=== PATIENT | female | born 1970 | race Two or more races ===

== ENCOUNTER 2025-03-13 11:52 | Inpatient (IN) | payer BC ==
[~2025-03-13] VITALS: Ht 170.2 cm; Wt 97.2 kg
[2025-03-13 11:56] VITALS: O2SAT 96
[2025-03-13] MEDS: SODIUM CHLORIDE 0.9% (SEPSIS BOLUS) IV ONE (12:15)
[2025-03-13] MEDS: CEFTRIAXONE 1GM/50ML 50 ML IV ONE (12:34)
[2025-03-13 12:35] LABS: BASOPHILS % 0.7 % (0.0-2.0); EOSINOPHILS % 1.5 % (0.0-5.0); HEMATOCRIT. 43.7 % (36.0-48.0); HEMOGLOBIN. 14.5 g/dL (12.0-16.0); LYMPHOCYTES % 26.7 % (20.0-50.0); MEAN PLATELET VOLUME 7.9 fl (7.4-10.4); MONOCYTES % 6.8 % (2.0-8.0); NEUTROPHILS % 64.3 % (40.0-76.0); PLATELET 233 x1000/uL (130-400); RED BLOOD CELL COUNT 5.21 mill/uL (4.2-5.4); RED CELL DISTRIBUTION WIDTH 13.3 % (11.6-14.6)
[2025-03-13 12:49] LABS: CLARITY URINE CLEAR (CLEAR); COLOR URINE YELLOW (YELLOW); GLUCOSE URINE 1+ (NEGATIVE); KETONES URINE NEGATIVE (NEGATIVE); LEUKOCYTE ESTERASE URINE NEGATIVE (NEGATIVE); NITRITE URINE NEGATIVE (NEGATIVE); OCCULT BLOOD URINE NEGATIVE (NEGATIVE); PH URINE 7.0 (4.5-8.0); PROTEIN URINE NEGATIVE (NEGATIVE); SPECIFIC GRAVITY URINE 1.005 (1.005-1.030); UROBILINOGEN URINE 0.2 E.U./dL (0.2-1.0)
[2025-03-13 12:53] LABS: CREATININE 0.8 mg/dL (0.6-1.0)
[2025-03-13 12:54] LABS: ETHANOL BLOOD < 10 mg/dL (<10); PROTEIN TOTAL 7.9 g/dL (6.0-8.3); UREA NITROGEN BLOOD < 5 mg/dL (9-23)
[2025-03-13 12:55] LABS: ASPARTATE AMINOTRANSFERASE 65 IU/L (<34); BILIRUBIN DIRECT 0.1 mg/dL (<=3.0); TROPONIN I HIGH SENSITIVITY < 4 ng/L (3.0-34)
[2025-03-13 12:56] LABS: BILIRUBIN TOTAL 0.5 mg/dL (0.1-1.0)
[2025-03-13 13:02] LABS: SQUAMOUS EPITHELIAL CELL URINE 2+ /lpf (RARE/1+)
[2025-03-13 13:03] LABS: BACTERIA URINE 1+; RBC URINE 0-2 /hpf (0-2); WBC URINE 0-2 /hpf (0-2)
[2025-03-13] MEDS: AZITHROMYCIN 500MG/250ML 250 ML IV ONE (13:10)
[2025-03-13] MEDS: METOCLOPRAMIDE HCL 10MG/2ML VIAL IV ONE (13:10)
[2025-03-13] MEDS: DEXAMETHASONE 4MG TABLET PO ONE (13:10)
[2025-03-13] MEDS: ACETAMINOPHEN 325MG TABLET PO ONE (13:10)
[2025-03-13 13:39] LABS: T4 FREE 1.12 ng/dL (0.89-1.76)
[2025-03-13 14:34] LABS: INR 1.0
[2025-03-13 14:38] LABS: TROPONIN I HIGH SENSITIVITY 5 ng/L (3.0-34)
[2025-03-13] MEDS: AMLODIPINE 5MG TABLET PO ONE (14:55)
[2025-03-13 15:30] LABS: *AMPHETAMINES SCREEN URINE NEGATIVE (NEGATIVE); *BARBITURATES SCREEN URINE NEGATIVE (NEGATIVE); *BENZODIAZEPINES SCREEN URINE NEGATIVE (NEGATIVE); *COCAINE SCREEN URINE NEGATIVE (NEGATIVE); METHADONE URINE SCREEN NEGATIVE (NEGATIVE)
[2025-03-13 15:31] LABS: CANNABINOID URINE SCREEN NEGATIVE (NEGATIVE); ECSTASY MDMA SCREEN URINE NEGATIVE (NEGATIVE); OPIATES URINE SCREEN NEGATIVE (NEGATIVE); PHENCYCLIDINE URINE SCREEN NEGATIVE (NEGATIVE)
[2025-03-13] MEDS: LABETALOL 5MG/ML 4ML INJ IV NR (17:36)
[2025-03-13] MEDS ORDERED: ACETAMINOPHEN 325MG TABLET PO PRN ×2 (19:15)
[2025-03-13] MEDS ORDERED: DOCUSATE SODIUM 100MG CAPSULE PO PRN (19:15)
[2025-03-13] MEDS ORDERED: HYDRALAZINE 20MG/ML VIAL IV PRN (19:15)
[2025-03-13] MEDS ORDERED: DEXTROSE 50% WATER 50ML SYRINGE IV PRN (19:15)
[2025-03-13] MEDS ORDERED: MAGNESIUM/ALUMINUM HYDROXIDE/SIMETHICONE 30ML UDC PO PRN (19:15)
[2025-03-13] MEDS ORDERED: ONDANSETRON HCL 4MG/2ML INJ IV PRN (19:15)
[2025-03-13] MEDS ORDERED: CLONIDINE 0.1MG TABLET PO PRN (19:15)
[2025-03-13] MEDS ORDERED: NA PHOS,M-B/NA PHOS,DI-BA ENEMA 118ML PR PRN (19:15)
[2025-03-13] MEDS ORDERED: GUAIFENESIN 200MG/10ML SUGAR FREE UDC PO PRN (19:15)
[2025-03-13] MEDS ORDERED: IPRATROPIUM/ALBUTEROL 0.5-3(2.5)MG/3ML NEB HHN PRN (19:15)
[2025-03-13] MEDS ORDERED: HYDROCODONE/ACETAMINOPHEN 5/325MG TABLET PO PRN (19:15)
[2025-03-13] MEDS ORDERED: NALOXONE HCL 0.4MG/ML VIAL IV PRN (19:45)
[2025-03-13 20:00] VITALS: BP 148/85; PULSE 92; RESP 20; TEMP 36.1956
[2025-03-13] MEDS: BLOOD SUGAR DIAGNOSTIC STRIP TEST SCH (21:00)
[2025-03-13] MEDS: ATORVASTATIN CALCIUM 40MG TABLET PO SCH (21:23)
[2025-03-13] MEDS: MAGNESIUM 2 G PREMIX 50 ML IV NR (21:23)
[2025-03-13] MEDS: SUMATRIPTAN SUCCINATE 25MG TABLET PO SCH (21:24)
[2025-03-13] MEDS: LOSARTAN 25 MG TABLET PO SCH (21:44)
[2025-03-13] MEDS: PANTOPRAZOLE SODIUM 40 MG/VIAL IV SCH (22:51)
[2025-03-13] MEDS: INSULIN LISPRO 100 UNITS/ML SUBCUT SCH (23:14)
[2025-03-13] MEDS ORDERED: IOHEXOL-350 100 ML BOTTLE ONE (23:16)
[2025-03-14 00:46] LABS: TROPONIN I HIGH SENSITIVITY 4 ng/L (3.0-34)
[2025-03-14 04:00] VITALS: BP 138/85; PULSE 98; RESP 18; TEMP 36.3; O2SAT 99
[2025-03-14] MEDS ORDERED: HYDR25TA PO (04:23)
[2025-03-14] MEDS ORDERED: AMLO-375 PO (04:23)
[2025-03-14 06:40] LABS: BASOPHILS % 0.1 % (0.0-2.0); EOSINOPHILS % 0.0 % (0.0-5.0); HEMATOCRIT. 39.7 % (36.0-48.0); HEMOGLOBIN. 13.5 g/dL (12.0-16.0); LYMPHOCYTES % 10.0 % (20.0-50.0); MEAN PLATELET VOLUME 8.1 fl (7.4-10.4); MONOCYTES % 2.3 % (2.0-8.0); NEUTROPHILS % 87.6 % (40.0-76.0); PLATELET 252 x1000/uL (130-400); RED BLOOD CELL COUNT 4.78 mill/uL (4.2-5.4); RED CELL DISTRIBUTION WIDTH 13.6 % (11.6-14.6)
[2025-03-14 06:54] LABS: CREATININE 0.8 mg/dL (0.6-1.0)
[2025-03-14 06:55] LABS: TRIGLYCERIDE 39 mg/dL (0-150); UREA NITROGEN BLOOD 9 mg/dL (9-23)
[2025-03-14 06:56] LABS: ASPARTATE AMINOTRANSFERASE 26 IU/L (<34); LDL CHOLESTEROL 135 mg/dL (5-100); PROTEIN TOTAL 6.8 g/dL (6.0-8.3); TROPONIN I HIGH SENSITIVITY < 4 ng/L (3.0-34)
[2025-03-14 06:57] LABS: BILIRUBIN DIRECT 0.1 mg/dL (<=3.0); BILIRUBIN TOTAL 0.4 mg/dL (0.1-1.0)
[2025-03-14 08:00] VITALS: BP 172/92; PULSE 112; RESP 18; TEMP 36.4; O2SAT 98
[2025-03-14] MEDS: KCL 20MEQ/100ML PREMIX 100 ML IV SCH (09:00)
[2025-03-14] MEDS: HYDROCHLOROTHIAZIDE 25MG TABLET PO SCH (09:38)
[2025-03-14] MEDS: AMLODIPINE 5MG TABLET PO SCH (09:38)
== END 2025-03-14 10:10 | disposition left against medical advice (07) | DRG 305 ==
LOC: ER 11:52 → EDBEDREQTM 17:19 → EDBEDREQ 17:19 → 7WST 18:41
PROVIDERS: ADMIT Internal Medicine; ATTEND Internal Medicine
DX: I16.1 Hypertensive emergency (principal); E87.20 Acidosis, unspecified; E11.9 Type 2 diabetes mellitus without complications; K76.0 Fatty (change of) liver, not elsewhere classified; I10 Essential (primary) hypertension; E83.42 Hypomagnesemia; M54.12 Radiculopathy, cervical region; M79.7 Fibromyalgia; G43.909 Migraine, unspecified, not intractable, without status migrainosus; G89.29 Other chronic pain; Z20.822 Contact with and (suspected) exposure to COVID-19; F41.9 Anxiety disorder, unspecified; Z79.899 Other long term (current) drug therapy; Z80.0 Family history of malignant neoplasm of digestive organs; Z80.42 Family history of malignant neoplasm of prostate; Z90.710 Acquired absence of both cervix and uterus; Z91.148 Patient's other noncompliance with medication regimen for other reason
CPT/HCPCS: 36415; 71045; 71275; 80048; 80061; 80076; 80305; 80320; 81003; 82962; 83036; 83605; 83735; 83880; 84145; 84439; 84443; 84484; 85025; 87426; 93005; 96365; 96367; 96375; 99291; J0456; J0696; J1815; J2470; J2765; J3475; J3490; J7030; J8540; Q9967; G0480